=== PATIENT | male | born 1990 | race African-American/Black ===

== ENCOUNTER 2017-01-05 20:09 | Emergency (ER) | payer OTHER ==
[~2017-01-05] VITALS: Ht 180.3 cm; Wt 84.2 kg
[~2017-01-05 20:09] MED LIST: DELTASONE20 M1 PO; FLEXERIL10 MG PO; NAPROSYN500 MG PO; VITAMIN D31000 UNIT PO; ZITHROMAX Z-PA250 MG PO
[2017-01-05] MEDS ORDERED: CIMETIDINE800 MG PO (20:54)
[2017-01-05 21:28] LABS: HEMATOCRIT 49.9 % (38.0-50.0); MCH 27.7 PG (29.0-34.0); MCHC 32.5 G/DL (30.0-36.0); MCV 85.4 FL (86-99); RBC DIS.WIDTH-CV 14.5 % (11.8-14.6); RBC DIS.WIDTH-SD 44.2 % (39-53); RED BLOOD COUNT 5.84 M/uL (4.00-5.50); WHITE BLOOD COUNT 9.7 K/uL (4.1-10.2)
[2017-01-05 22:13] LABS: ADD MIUA? NO; BILIRUBIN NEGATIVE; BLOOD NEGATIVE; COLOR STRAW ((YELLOW)); GLUCOSE (STRIP) NEGATIVE; KETONES NEGATIVE; LEUKOCYTES NEGATIVE; NITRITE NEGATIVE; PROTEIN (STRIP) NEGATIVE; UCUL ADDED? NO; UROBILINOGEN 0.2 MG/DL (0.2-1.0)
[2017-01-05 22:21] LABS: PLATELET COUNT 143 K/uL (156-360)
[2017-01-05 22:31] LABS: CHLORIDE 108 mEq/L (99-109); POTASSIUM 4.3 mEq/L (3.7-5.4); SODIUM 138 mEq/L (136-147)
[2017-01-05 22:33] LABS: GLUCOSE 80 mg/dL (70-99)
[2017-01-05 22:34] LABS: ANION GAP 8 MEQ/L (2-14)
[2017-01-05 22:35] LABS: TOTAL BILIRUBIN 1.3 mg/dL (0.0-1.0)
[2017-01-05 22:37] LABS: ALKALINE PHOSPHATASE 60 IU/L (3-129); GFR ESTIMATE (CALCULATED) > 59 mL/min/
[2017-01-05 22:38] LABS: UREA NITROGEN (BUN) 11 mg/dL (9-23)
[2017-01-05 22:40] LABS: LIPASE 20 U/L (1.0-51.0)
[2017-01-05] MEDS ORDERED: MAALOX MAXIMUM355 ML PO (23:38)
[2017-01-06 00:06] VITALS: BP 139/80
== END 2017-01-06 00:07 | disposition home or self-care (01) ==
LOC: EME 20:09
PROVIDERS: Emergency Medicine
DX: K29.70 Gastritis, unspecified, without bleeding (principal); F17.200 Nicotine dependence, unspecified, uncomplicated; K21.9 Gastro-esophageal reflux disease without esophagitis; J45.909 Unspecified asthma, uncomplicated
CPT/HCPCS: 71020; 74177; 80053; 81003; 83690; 85027; 99281; 99285; C9113; J2405; J3010; J7030